=== PATIENT | male | born 1955 | race Caucasian/White ===

== ENCOUNTER 2021-04-20 12:55 | Emergency (ER) | payer OTHER ==
[~2021-04-20] VITALS: Ht 182.9 cm; Wt 76.2 kg
[2021-04-20 13:17] LABS: BASOPHILS ABSOLUTE AUTO 0.05 K/mm3 (0.00-0.23); BASOPHILS PERCENT AUTO 1 % (0-2); EOSINOPHILS ABSOLUTE AUTO 0.05 K/mm3 (0.00-0.68); EOSINOPHILS PERCENT AUTO 1 % (0-6); Hematocrit 42.9 % (37.0-53.0); Hemoglobin 15.2 g/dL (13.5-17.5); IMMATURE GRAN ABSOLUTE AUTO 0.11 K/mm3 (0.00-0.10); IMMATURE GRAN PERCENT AUTO 2 % (0-1); LYMPHOCYTES ABSOLUTE AUTO 1.33 K/mm3 (0.84-5.20); LYMPHOCYTES PERCENT AUTO 18 % (21-46); MONOCYTES ABSOLUTE AUTO 0.96 K/mm3 (0.16-1.47); MONOCYTES PERCENT AUTO 13 % (4-13); Mean Corpuscular HGB 32.1 pg (26.0-34.0); Mean Corpuscular HGB Conc 35.4 g/dL (31.5-36.5); Mean Corpuscular Volume 91 fL (80-100); Mean Platelet Volume 9.1 fL (9.1-12.4); NEUTROPHILS ABSOLUTE AUTO 4.86 K/mm3 (1.96-9.15); NEUTROPHILS PERCENT AUTO 66 % (41-73); Platelet Count 264 K/mm3 (150-400); RDW Coefficient Variation 12.1 % (11.7-14.2); RDW Standard Deviation 40.5 fL (35.1-46.3); Red Blood Cell Count 4.73 M/mm3 (4.30-5.90); White Blood Cell Count 7.36 K/mm3 (4.00-11.30)
[2021-04-20 13:51] LABS: Alanine Aminotransfer (ALT/SGP 319 U/L (12-78); Albumin, Blood 3.2 g/dL (3.4-5.0); Albumin/Globulin Ratio 0.7 (0.8-1.8); Alk Phos 65 U/L (50-136); Anion Gap 5 mmol/L (6-16); Aspartate Aminotrans (AST/SGOT 231 U/L (12-37); Bilirubin, Total 1.1 mg/dL (0.1-1.0); Blood Urea Nitrogen 19 mg/dL (8-24); CO2, Blood 28 mmol/L (21-32); Calcium, Blood 9.2 mg/dL (8.5-10.1); Chloride, Blood 100 mmol/L (98-108); Creatinine, Blood 1.12 mg/dL (0.60-1.20); Globulin, Blood 4.7 g/dL (2.2-4.0); Glomerular Filtration Rate >60 (60-); Glucose, Blood 89 mg/dL (70-99); Sodium, Blood 133 mmol/L (136-145); Total Protein, Blood 7.9 g/dL (6.4-8.2)
[2021-04-20 14:08] LABS: Troponin I <0.015 ng/mL (0.000-0.040)
== END 2021-04-20 15:01 | disposition home or self-care (01) ==
LOC: ER 12:55
PROVIDERS: Emergency Medicine; Physician Assistant
DX: T67.1XXA Heat syncope, initial encounter (principal); Z87.891 Personal history of nicotine dependence
CPT/HCPCS: 80053; 83690; 83880; 84484; 85025; 93005; 93010; J7030

== ENCOUNTER → 2024-08-10 | Outpatient (CLI) | payer OTHER ==
[~2024-08-10] MED LIST: AMLO5 PO; CATAPRES0.2 M1 PO; VITAMIN B-1100 MG PO
[2024-08-10 18:53] LABS: International Normalized Ratio 0.94; Prothrombin Time Results 10.1 Sec (9.7-11.5)
[2024-08-10 19:59] LABS: Albumin, Blood 3.8 g/dL (3.4-5.0); Albumin/Globulin Ratio 0.7 (0.8-1.8); Bilirubin, Direct 0.2 mg/dL (0.0-0.3); Bilirubin, Indirect 0.6 mg/dL (0.1-0.7); Bilirubin, Total 0.8 mg/dL (0.1-1.0); Globulin, Blood 5.2 g/dL (2.2-4.0); Percent Saturation 32.1 % (20.0-50.0)
[2024-08-12 15:43] LABS: HEPATITIS B SURFACE ANTIBODY 27.61 IU/L
[2024-08-12 16:44] LABS: HEPATITIS A ANTIBODIES, TOTAL Negative (Negative)
[2024-08-14 08:31] LABS: ALPHA-2-MACROGLOBUL,FIBROMETER 554 mg/dL (131-293); ALT,FIBROMETER 32 U/L (5-50); AST,FIBROMETER 31 U/L (9-50); CIRRHOMETER PATIENT SCORE 0; FIBROMETER INTERPRETATION See Report; FIBROMETER PATIENT SCORE 0.51; FIBROMETER PLATELET COUNT 312 k/uL; FIBROMETER PROTHROMBIN INDEX 104 % (90-120); FIBROSIS METAVIR CLASSIFICAT F2[F1-F2]; GGT,FIBROMETER 28 U/L (7-51); INFLAMETER METAVIR CLASSIFICAT A1/A2; INFLAMETER PATIENT SCORE 0.55; UREA NITROGEN,SERUM,FIBROMETER 18 mg/dL (7-20)
[2024-08-14 09:19] LABS: HCV GENOTYPE BY SEQUENCING 1a or 1b
== END | disposition home or self-care (01) ==
LOC: LAB SHORT 14:25 → LAB 14:25
DX: B18.2 Chronic viral hepatitis C (principal)
CPT/HCPCS: 80076; 82728; 82977; 83540; 83550; 83883; 84450; 84460; 84520; 85610; 86708; 87902

== ENCOUNTER 2024-09-22 13:17 | Observation (INO) | payer OTHER ==
[~2024-09-22] VITALS: Ht 172.7 cm; Wt 80.5 kg
[2024-09-22 14:26] LABS: BASOPHILS ABSOLUTE AUTO 0.05 K/mm3 (0.00-0.23); BASOPHILS PERCENT AUTO 1 % (0-2); EOSINOPHILS ABSOLUTE AUTO 0.06 K/mm3 (0.00-0.68); EOSINOPHILS PERCENT AUTO 1 % (0-6); Hematocrit 42.5 % (37.0-53.0); Hemoglobin 15.5 g/dL (13.5-17.5); IMMATURE GRAN ABSOLUTE AUTO 0.03 K/mm3 (0.00-0.10); IMMATURE GRAN PERCENT AUTO 1 % (0-1); LYMPHOCYTES ABSOLUTE AUTO 1.67 K/mm3 (0.84-5.20); LYMPHOCYTES PERCENT AUTO 33 % (21-46); MONOCYTES ABSOLUTE AUTO 0.54 K/mm3 (0.16-1.47); MONOCYTES PERCENT AUTO 11 % (4-13); Mean Corpuscular HGB 32.5 pg (26.0-34.0); Mean Corpuscular HGB Conc 36.5 g/dL (31.5-36.5); Mean Corpuscular Volume 89 fL (80-100); Mean Platelet Volume 8.8 fL (9.1-12.4); NEUTROPHILS ABSOLUTE AUTO 2.68 K/mm3 (1.96-9.15); NEUTROPHILS PERCENT AUTO 53 % (41-73); Platelet Count 289 K/mm3 (150-400); RDW Coefficient Variation 12.4 % (11.7-14.2); RDW Standard Deviation 40.5 fL (35.1-46.3); Red Blood Cell Count 4.77 M/mm3 (4.30-5.90); White Blood Cell Count 5.03 K/mm3 (4.00-11.30)
[2024-09-22 14:46] LABS: Albumin, Blood 3.8 g/dL (3.4-5.0); Albumin/Globulin Ratio 0.7 (0.8-1.8); Bilirubin, Total 0.8 mg/dL (0.1-1.0); Bun/Creatinine Ratio 24.5 (12.0-20.0); Calcium, Blood 9.7 mg/dL (8.5-10.1); Creatinine, Blood 0.9 mg/dL (0.60-1.20); Globulin, Blood 5.4 g/dL (2.2-4.0); Total Protein, Blood 9.2 g/dL (6.4-8.2)
[2024-09-22] MEDS ORDERED: NS 1,000 ML IV SCH (18:40)
[2024-09-22] MEDS ORDERED: Ondansetron HCl 2 MG / ML 2ML Vial IV PRN (19:20)
[2024-09-22] MEDS ORDERED: FLU VACC TS2024-25(6MOS UP)/PF 45 MCG/0.5 ML SYRINGE IM SCH (19:20)
[2024-09-22] MEDS ORDERED: ChlordiazePOXIDE 25 MG Cap PO PRN (19:45)
[2024-09-22] MEDS ORDERED: LORazepam 2 MG/ML 1ML Injection IV PRN (19:45)
[2024-09-22 19:51] LABS: Source, Urine Clean Catch
[2024-09-22 19:59] LABS: Appearance, Urine Clear (Clear); Bilirubin, Urine Neg (Neg); Blood, Urine Neg (Neg); Color, Urine Yellow (P-Yellow); Glucose Qualitative, Urine Neg (Neg); Ketones, Urine Neg (Neg); Leukocyte Esterase, Urine Neg (Neg); Nitrite, Urine Neg (Neg); Protein, Urine 2+ (Neg); Urobilinogen, Urine NORM (Normal)
[2024-09-22] MEDS ORDERED: Enoxaparin 40 MG/0.4 ML SYR SC SCH (20:00)
[2024-09-22 20:11] LABS: Bacteria Rare /hpf; Red Blood Cells, Urine 0-2 /hpf (0-2); Squamous Epithelial Cells Rare /hpf (Few); White Blood Cells, Urine 0-2 /hpf (0-5)
[2024-09-22 20:13] LABS: U Amphetamine Screen Not Detected; U Barbituate Screen Not Detected; U Benzodiazapine Screen Not Detected; U Buprenorphine Screen Not Detected; U Cannabinoids Screen Not Detected; U Cocaine Screen Not Detected; U Methadone Screen Not Detected; U Methamphetamine Screen Not Detected; U Opiates Screen Not Detected; U Oxycodone Screen Not Detected; U Phencyclidine Screen Not Detected
[2024-09-22 20:59] VITALS: BP 160/83
[2024-09-22] MEDS ORDERED: Magnesium Sulf 2 GM/Water 50ML 50 ML IV ONE (23:55)
[2024-09-23] MEDS ORDERED: Lisinopril 20 MG Tab PO SCH
[2024-09-23] MEDS ORDERED: NS 250 ML IV PRN (00:10)
[2024-09-23 00:18] VITALS: BP 144/85
[2024-09-23 04:40] VITALS: BP 131/82
[2024-09-23 05:09] LABS: BASOPHILS ABSOLUTE AUTO 0.05 K/mm3 (0.00-0.23); BASOPHILS PERCENT AUTO 1 % (0-2); EOSINOPHILS ABSOLUTE AUTO 0.12 K/mm3 (0.00-0.68); EOSINOPHILS PERCENT AUTO 2 % (0-6); Hemoglobin 12.9 g/dL (13.5-17.5); IMMATURE GRAN ABSOLUTE AUTO 0.03 K/mm3 (0.00-0.10); IMMATURE GRAN PERCENT AUTO 1 % (0-1); LYMPHOCYTES ABSOLUTE AUTO 2.16 K/mm3 (0.84-5.20); LYMPHOCYTES PERCENT AUTO 37 % (21-46); MONOCYTES ABSOLUTE AUTO 0.63 K/mm3 (0.16-1.47); MONOCYTES PERCENT AUTO 11 % (4-13); Mean Corpuscular HGB 31.7 pg (26.0-34.0); Mean Corpuscular HGB Conc 35.8 g/dL (31.5-36.5); Mean Corpuscular Volume 89 fL (80-100); Mean Platelet Volume 8.9 fL (9.1-12.4); NEUTROPHILS ABSOLUTE AUTO 2.86 K/mm3 (1.96-9.15); NEUTROPHILS PERCENT AUTO 49 % (41-73); Platelet Count 239 K/mm3 (150-400); RDW Coefficient Variation 12.3 % (11.7-14.2); RDW Standard Deviation 39.8 fL (35.1-46.3); Red Blood Cell Count 4.07 M/mm3 (4.30-5.90); White Blood Cell Count 5.85 K/mm3 (4.00-11.30)
--- NOTE | 2024-09-23 05:44 | NUR ---
SHIFT SUMMARY NOC PT A/O X 4. PLEASANT AND COOPERATIVE WITH CARE. ADMIT FOR SYMPTOMATIC BRADYCARDIA AND NEAR SYNCOPE FOR PAST WEEK. PT HAS LIMITED PMH AND ENDORSES HTN AND BOTH BP MEDICATIONS RECONCILED AND ORDERED. PT HAS BEEN SINUS NIKI/RHYTHM IN 50'S-60'S SINCE ADMIT TO FLOOR. MAGNESIUM 1.5 AND 2 GRAM REPLACEMENT GIVEN. PT HAS ECHO SCHEDULED FOR TODAY WELL CARDIOLOGY CONSULT THAT HAS BEEN CALLED IN TO ANSWERING SERVICE. PT CURRENTLY RESTING WITH BED IN LOWEST POSITION, AND CALL LIGHT WITHIN REACH.
[2024-09-23 05:48] LABS: Albumin, Blood 3.3 g/dL (3.4-5.0); Albumin/Globulin Ratio 0.7 (0.8-1.8); Bilirubin, Total 0.7 mg/dL (0.1-1.0); Bun/Creatinine Ratio 23.8 (12.0-20.0); Calcium, Blood 9.1 mg/dL (8.5-10.1); Creatinine, Blood 0.88 mg/dL (0.60-1.20); Globulin, Blood 4.6 g/dL (2.2-4.0); Magnesium, Blood 1.8 mg/dL (1.6-2.4); Potassium, Blood 3.6 mmol/L (3.5-5.5); Total Protein, Blood 7.9 g/dL (6.4-8.2)
[2024-09-23] MEDS ORDERED: Magnesium Sulf 2 GM/Water 50ML 50 ML IV SCH (06:40)
[2024-09-23 07:34] VITALS: BP 119/75
[2024-09-23] MEDS ORDERED: CloNIDine 0.1 MG Tab PO SCH (09:00)
[2024-09-23] MEDS ORDERED: NS 1,000 ML IV ONE (10:00)
[2024-09-23 12:28] VITALS: BP 138/79
[2024-09-23] MEDS ORDERED: ASPI81CH PO (14:18)
[2024-09-23] MEDS ORDERED: ATOR40TA PO (14:19)
[2024-09-23] MEDS ORDERED: LISI20 PO (14:20)
--- NOTE | 2024-09-23 16:50 | NUR ---
DISCHARGE PT ROOMMATE, LORENZO, NOTIFIED OF DC INSTRUCTIONS, INCLUDING NEW MEDICATIONS, FOLLOW UP APPOINTMENTS NEEDED, AND SPECIFIC MD INSTRUCTIONS. PT ALSO EDUCATED ON THESE THINGS. PT REMINDED TO PRESS HIS ZIOPATCH BUTTON AND RECORD SYMPTOMS IF THEY OCCUR. PT SET WITH PRINTED INSTRUCTIONS AND WHEELED OUT OF FACILITY BY AIDE.
[2024-09-24] MEDS ORDERED: Aspirin 81 MG Chew PO SCH (09:00)
[2024-09-24] MEDS ORDERED: AmLODIPine Besylate 5 MG Tab PO SCH (09:00)
[2024-09-24] MEDS ORDERED: Atorvastatin 40 MG Tab PO SCH (09:00)
== END 2024-09-23 17:06 | disposition home or self-care (01) ==
LOC: ER 13:17 → ERHOLD 19:15 → MEDS 19:15
PROVIDERS: Physician Assistant; ADMIT Internal Medicine
DX: R00.1 Bradycardia, unspecified (principal); R55 Syncope and collapse; E87.1 Hypo-osmolality and hyponatremia; I10 Essential (primary) hypertension; E78.5 Hyperlipidemia, unspecified; F10.20 Alcohol dependence, uncomplicated; Z87.891 Personal history of nicotine dependence; Z79.899 Other long term (current) drug therapy; Z87.442 Personal history of urinary calculi; Z86.73 Personal history of transient ischemic attack (TIA), and cerebral infarction without residual deficits
CPT/HCPCS: 36415; 70450; 71046; 80053; 81001; 83690; 83735; 83880; 84439; 84443; 85025; 85379; 93005; 93010; 93246; 93306; 96360; 96361; 96365; 96366; 96372; 96376; 97116; 97162; 99284-25; A9270; G0378; J1650; J3475; J7030; J7050

== ENCOUNTER 2025-04-12 07:07 | Day surgery (SDC) | payer MEDICARE, OTHER ==
[2025-04-12] VITALS (7 sets, daily range): BP systolic 122–171; BP diastolic 78–99
[~2025-04-12] VITALS: Ht 177.8 cm; Wt 83.0 kg
[~2025-04-12 07:07] MED LIST changes: +ASPI81CH PO; +ATOR40TA PO; +LISI20 PO; +TELM80 PO
[2025-04-12] MEDS ORDERED: NS 1,000 ML IV ONE ×2 (07:28→07:45)
[2025-04-12] MEDS ORDERED: Heparin Sodium 1000 Units/ML 10ML MDV ONE (07:28)
[2025-04-12] MEDS ORDERED: Nitroglycerin 2 MG/20 ML BTL ONE (07:28)
[2025-04-12] MEDS ORDERED: NS 250 ML IV ONE (07:28)
[2025-04-12] MEDS ORDERED: Verapamil HCL 2.5 MG/ML 2ML Injection ONE (07:28)
[2025-04-12] MEDS ORDERED: OLME20 PO (07:42)
[2025-04-12] MEDS ORDERED: VITAMIN B1250 MG PO (07:42)
[2025-04-12] MEDS ORDERED: EPCLUSA 200 MG1 EACH PO (07:44)
[2025-04-12] MEDS ORDERED: FentaNYL Citrate 50 MCG/ML 2 ML Injection ONE (08:06)
[2025-04-12] MEDS ORDERED: Midazolam HCl 1MG / ML 2ML Vial ONE (08:06)
[2025-04-12] MEDS ORDERED: LISI20 PO (09:31)
--- NOTE | 2025-04-12 10:13 | NUR ---
5CC OF AIR FROM PT TR BAND REMOVED. NO BLEEDING OR HEMATOMA NOTED. VSS. NADN
--- NOTE | 2025-04-12 10:30 | NUR ---
PT TR BAND FULLY DEFLATED. NO BLEEDING OR HEMATOMA NOTED. VSS. NADN. PT VERBALIZES UNDERSTANDING WRITTEN AND VERBAL INSTRUCTIONS. DENIES QUESTIONS.
--- NOTE | 2025-04-12 10:55 | NUR ---
PT DRESSES SELF WITHOUT DIFF. TR BAND REMOVED FROM R RADIAL. CLOTH DOT IN PLACE WITH SPLINT. NO BLEEDING NOTED. VSS. NADN. PT IV DC'D. CATH INTACT. PRESSURE DSG APPLIED. PT DC TO HOME VIA FRIEND, LORENZO,.
--- NOTE | 2025-04-12 11:05 | NUR ---
PT DC TO HOME VIA FRIEND VIA WC. PT FRIEND VERBALIZES UNDERSTANDING WRITTEN AND VERBAL INSTRUCTIONS. DENIES QUESTIONS OR CONCERNS.
== END 2025-04-12 23:00 | disposition home or self-care (01) ==
LOC: MHTC 07:07
DX: I25.10 Atherosclerotic heart disease of native coronary artery without angina pectoris (principal); R55 Syncope and collapse; I10 Essential (primary) hypertension; E78.5 Hyperlipidemia, unspecified; I49.5 Sick sinus syndrome
CPT/HCPCS: 76937; 93458; 99152; 99153; A9270; C1769; C1887; C1894; J1644; J2250; J3010; J7030; J7050; Q9967